=== PATIENT | female | born 1955 | race Caucasian/White ===

== ENCOUNTER → 2017-11-04 11:05 | Outpatient (CLI) | payer SELFPAY ==
--- NOTE | 2017-11-04 11:08 | MRI_ITS ---
STUDY: MRI LUMBAR SPINE WITHOUT CONTRAST REASON FOR EXAM: Female, 62 years old. rt leg pain, back pain x 20yrs TECHNIQUE: Standardized fat and water weighted pulse sequences were obtained in the sagittal and axial planes. COMPARISON: None FINDINGS: There is an exaggerated lumbar lordosis. There is a dextroscoliosis of the lumbar spine. Normal conus medullaris that terminates at the L1-2 level. There is slight retrolisthesis at L2-3 through L5-S1. There is loss of disc height at L2-3 and L3-4. There is mild chronic anterior wedging of T11. There are Modic type II changes at L3-4 there are Modic endplate changes at T9-10. There is a 1 cm benign-appearing structure in T12. There is multilevel facet arthropathy and ligamentum flavum hypertrophy. T12/L1: There is a small right paracentral protrusion impressing on the right ventral thecal sac. No neuroforaminal stenosis. L1/2: There is a minimal diffuse bulge without central canal or neuroforaminal stenosis. L2/3: There is a diffuse bulge slightly larger on the right. There is impression on the ventral thecal sac and mild right worse than left neuroforaminal stenosis. L3/4: There is a slight diffuse bulge. There is no central canal stenosis. There is [id number] bilateral neuroforaminal stenosis. L4/5: There is a diffuse bulge larger on the left. There is a tiny right foraminal annular tear. There is impression on the left ventral thecal sac and severe left and hgps-em-yntuvrzh right neuroforaminal stenosis. L5/S1: There is a mild diffuse bulge. There is no central canal stenosis. There is moderate left and mild right neuroforaminal stenosis. Normal visualized sacral ala. Normal visualized paraspinous soft tissue structures. MRI/Spine Lumbar (Routine) IMPRESSION: Multilevel degenerative changes, as described above. There is an exaggerated lumbar lordosis. There is a dextroscoliosis of the lumbar spine. L2/3: There is a diffuse bulge slightly larger on the right. There is mild right worse than left neuroforaminal stenosis. L3/4: There is a slight diffuse bulge. There is [id number] bilateral neuroforaminal stenosis. L4/5: There is a diffuse bulge larger on the left. There is a tiny right foraminal annular tear. There is severe left and eiwq-wz-gtpqvgvn right neuroforaminal stenosis. L5/S1: There is a mild diffuse bulge. There is moderate left and mild right neuroforaminal stenosis. Electronically Signed: Mary Freeman MD at 12:54 EDT , Service support ,
== END ==
PROVIDERS: Family Provider Family Medicine; PCP Family Medicine; Visit Provider Anesthesiology Pain Medicine
DX: M54.9 Dorsalgia, unspecified (principal); M79.604 Pain in right leg
CPT/HCPCS: 72148

== ENCOUNTER → 2017-11-05 10:19 | Outpatient (CLI) | payer OTHER, SELFPAY | PROVIDERS: Family Provider Family Medicine; PCP Family Medicine; Visit Provider Family Medicine | DX: R30.0 Dysuria (principal) | CPT/HCPCS: 87077; 87086; 87088; 87186 ==

== ENCOUNTER → 2018-10-09 | Outpatient (CLI) | payer OTHER, SELFPAY ==
--- NOTE | 2018-10-09 10:12 | RAD_ITS ---
STUDY: X-RAY - RIGHT FOOT CLINICAL: Female, 63 years old. Nonhealing inflamed wound on the plantar surface of the foot. Stepped on glass. TECHNIQUE: 3 view(s) of the foot. COMPARISON: None. FINDINGS: Normal talus, calcaneus, and tarsal bones. Normal visualized subtalar, talonavicular, calcaneocuboid, tarsal and tarsometatarsal articulations. Status post 8-year-old mid diaphyseal fracture of the fifth metatarsal repair with 2 screws. Status post healed fracture of the distal diaphysis of the fourth metatarsal repair with plate and screw hardware. Status post healed distal diaphyseal fracture of the third metatarsal. Degenerative changes of the first metatarsophalangeal joint with a moderate hallux valgus deformity and hypertrophic degenerative changes of the head of the first metatarsal. Lateral sesamoid migration. Normal interphalangeal joint of the great toe. Normal phalanges of the great toe. Normal second through fifth metatarsophalangeal joints. Normal interphalangeal joints and phalanges of the lesser toes. The soft tissue structures are unremarkable. RAD/Foot min 3 Views IMPRESSION: Negative for acute fracture, dislocation or foreign body. Negative for subcutaneous emphysema of the plantar soft tissues. Prior fractures of the third, fourth and fifth metatarsals healed with hardware as described above. Degenerative changes of the first metatarsophalangeal joint with hallux valgus deformity. Electronically Signed: Kiera Arguelles MD at 16:55 EDT , Service support ,
== END | disposition home or self-care (01) ==
PROVIDERS: Family Provider Family Medicine; PCP Family Medicine; Referring Provider Family Medicine; Visit Provider Family Medicine
DX: S90.851A Superficial foreign body, right foot, initial encounter (principal)
CPT/HCPCS: 73630

== ENCOUNTER → 2018-11-18 | Outpatient (CLI) | payer OTHER, SELFPAY ==
[2018-11-18 13:08] VITALS: BMI 21.4
--- NOTE | 2018-11-18 13:14 | RAD_ITS ---
STUDY: X-RAY - PELVIS AND RIGHT HIP REASON FOR EXAM: Increasing right hip pain. TECHNIQUE: 2 views of the pelvis and hip. COMPARISON: None. FINDINGS: Normal visualized soft tissue structures. Normal bilateral iliac wings, sacroiliac joints and visualized sacrum. There is a small bone island in the right iliac wing. Normal bilateral superior and inferior pubic rami. Normal pubic symphysis. Normal bilateral ischial tuberosities. There are small marginal osteophytes of the right femoral head, subchondral cystic change of the right acetabulum and moderate joint space narrowing of the right hip. RAD/HIP, UNI W/ Pelvis 2-3 Views IMPRESSION: Right hip arthrosis. Electronically Signed: Yan Barroso MD at 16:04 EDT Tel , Service support ,
== END | disposition home or self-care (01) ==
LOC: HPRAD 13:14
PROVIDERS: Family Provider Family Medicine; PCP Family Medicine; Referring Provider Orthopaedic Surgery; Visit Provider Orthopaedic Surgery
DX: M25.551 Pain in right hip (principal)
CPT/HCPCS: 73502

== ENCOUNTER → 2018-12-29 09:38 | Outpatient (CLI) | payer OTHER, SELFPAY ==
[2018-12-29 09:31] VITALS: BMI 21.4
--- NOTE | 2018-12-29 09:39 | RAD_ITS ---
STUDY: X-RAY - LUMBAR SPINE REASON FOR EXAM: Female, 63 years old. Back pain TECHNIQUE: 4 view(s) of the lumbar spine were obtained. COMPARISON: None FINDINGS: There is an exaggerated lumbar lordosis is no focal L1. Body fracture. No pars defect. Moderate degenerative change of the intervertebral disc spaces at L2-3 and L3-L4 with similar change, to a lesser degree, seen at L4-L5. Degenerative change of the facet joints at L4-L5 and L5-S1. The soft tissue structures are unremarkable. RAD/L/S Spine Min 4 Views IMPRESSION: 1. No acute abnormality of the lumbar spine. 2. Moderate multilevel degenerative disc and facet disease Electronically Signed: Abimael Francois MD at 3:12 EDT Tel , Service support ,
== END ==
PROVIDERS: Family Provider Family Medicine; PCP Family Medicine; Referring Provider Orthopaedic Surgery; Visit Provider Orthopaedic Surgery
DX: M54.5 Low back pain (principal)
CPT/HCPCS: 72110

== ENCOUNTER → 2019-01-05 13:33 | Outpatient (CLI) | payer OTHER, SELFPAY ==
[2018-12-29 09:31] VITALS: BMI 21.4
[2019-01-05 15:20] LABS: Amphetamine Urine VISTA NEGATIVE (<1000 ng/mL); Barbiturate Urine VISTA NEGATIVE (< 200 ng/mL); Benzodiazepine Urine VISTA NEGATIVE (< 200 ng/mL); Cocaine Urine VISTA NEGATIVE (< 300 ng/mL); Ecstacy Urine VISTA NEGATIVE (< 500 ng/mL); Methadone Urine VISTA NEGATIVE (< 300 ng/mL); PCP Urine VISTA NEGATIVE (< 25 ng/mL); THC Urine VISTA NEGATIVE (< 50 ng/mL); Vista UDS pH Range 6
== END ==
PROVIDERS: Family Provider Family Medicine; PCP Family Medicine; Referring Provider Anesthesiology Pain Medicine; Visit Provider Anesthesiology Pain Medicine
DX: F11.20 Opioid dependence, uncomplicated (principal)
CPT/HCPCS: 80307

== ENCOUNTER → 2019-02-17 11:13 | Outpatient (CLI) | payer OTHER, SELFPAY ==
[2019-02-17 10:46] VITALS: BMI 21.4
[2019-02-17 12:10] LABS: Absolute Lymphocyte Count 1.42 X10^3/uL (0.83-4.51); Absolute Neutrophil Count 3.5 X10^3/uL (2.0-7.7); Basophil# 0.04 X10^3/uL; Basophil% 0.7 % (0-1); Eosinophil# 0.11 X10^3/uL; Hemoglobin 12.8 g/dL (12.0-15.0); Lymphocyte # 1.42 X10^3/ul (4.0); Lymphocyte % 26.4 % (19-41); Mean Corp Hgb Conc 32.8 g/dL (32-36); Mean Corpuscular Hgb 30.4 pg (27.0-32.0); Mean Corpuscular Volume 92.6 fL (81-99); Monocyte# 0.35 X10^3/uL; Monocyte% 6.5 % (0-10); NRBC Flagged by Analyzer 0 % (0-5); Neutrophil # 3.45 X10^3/uL (2.7-7.7); Neutrophil % 64.2 % (47-70); Platelet Count 268 K/mm3 (150-450); RBC Distribution Width CV 11.8 % (11.6-14.6); RBC Distribution Width SD 39.8 fl (35.1-43.9); Red Blood Count 4.21 M/mm3 (4.2-5.4); White Blood Count 5.4 K/mm3 (4.4-11.0)
[2019-02-17 12:47] LABS: ALB/GLOB Ratio 1.2 RATIO (0.9-2.4); AST(SGOT) 20 U/L (15-37); Alanine Aminotransfer ALT/SGPT 26 U/L (13-56); Albumin, Serum 3.8 g/dL (3.2-5.0); Alkaline Phosphatase 61 U/L (45-117); Anion Gap 7 (5-15); BUN 12 mg/dL (7-18); BUN/Creat Ratio 14.3 RATIO (10-20); Calcium,Total 8.7 mg/dL (8.5-10.1); Chloride 97 mmol/L (98-107); Creatinine, Serum 0.84 mg/dL (0.55-1.02); EST Glomerular Filtration Rate 73 mL/min (>60); Est Glom Filt Rate - Afr Amer 89 mL/min (>60); Globulin 3.2 g/dL (2.2-4.2); Glucose 94 mg/dL (74-106); Potassium 4.3 mmol/L (3.5-5.1); Sodium Level 134 mmol/L (136-145); T4 Free Direct 1.23 ng/dL (0.76-1.46); Thyroid Stim Hormone (TSH) 1.38 uIU/mL (0.358-3.74)
== END ==
PROVIDERS: Family Provider Family Medicine; PCP Internal Medicine; Visit Provider Internal Medicine
DX: F32.9 Major depressive disorder, single episode, unspecified (principal); D50.9 Iron deficiency anemia, unspecified
CPT/HCPCS: 36415; 80053; 84439; 84443; 85025

== ENCOUNTER → 2019-05-11 12:47 | Outpatient (CLI) | payer OTHER, SELFPAY ==
[2019-05-10 11:27] VITALS: BMI 21.4
--- NOTE | 2019-05-11 12:48 | RAD_ITS ---
STUDY: X-RAY - PELVIS AND RIGHT HIP REASON FOR EXAM: Right hip pain. TECHNIQUE: 2 views of the pelvis and hip. COMPARISON: Radiographs 11/18/2018. FINDINGS: Normal visualized soft tissue structures. Normal bilateral iliac wings, sacroiliac joints and visualized sacrum. Normal bilateral superior and inferior pubic rami. Normal pubic symphysis. Normal bilateral ischial tuberosities. Normal visualized femoral head. There are small marginal osteophytes of the femoral head, subchondral cystic change of the acetabulum and severe joint space narrowing of the right hip joint, increased since the prior study. RAD/HIP, UNI W/ Pelvis 2-3 Views IMPRESSION: Increased arthrosis of the right hip. Electronically Signed: Yan Barroso MD at 14:50 EST Tel , Service support ,
== END ==
PROVIDERS: PCP Internal Medicine; Referring Provider Internal Medicine; Visit Provider Internal Medicine
DX: M25.551 Pain in right hip (principal)
CPT/HCPCS: 73502

== ENCOUNTER → 2019-06-09 17:47 | Outpatient (CLI) | payer OTHER, SELFPAY ==
[2019-06-04 10:22] VITALS: BMI 21.4
[2019-06-08 12:59] VITALS: BMI 21.4
--- NOTE | 2019-06-09 17:47 | CT_ITS ---
STUDY: RIGHT HIP CT SCAN REASON FOR EXAM: Female, 64 years old. PRE-OP [facility] HIP RADIATION DOSAGE (If Supplied By Facility): CTDIvol = ( 12.06 ) mGy, DLP = ( 599.85 ) mGycm. Individualized dose optimization techniques were used for this CT.? TECHNIQUE: Axial multidetector CT scan of the right hip. Coronal and sagittal reformatted images. COMPARISON: X-ray dated May 11, 2019. FINDINGS: Severe right hip osteoarthritis with large subchondral cyst formation at the right acetabulum. Severe joint space narrowing of the right hip. Mild osteophyte production at the right hip. Mild pubic symphysis arthrosis. Mild left hip arthrosis. Minimal sacroiliac joint arthrosis. L4-5, L5-S1 neural foramina narrowing. L4-5 and L5-S1 vacuum phenomenon. L4-5 moderate endplate spondylosis. No acute fracture. No acute dislocation. No acute bone destruction. Osteopenia. Slightly hyperdense ovoid pelvic density likely at the region of the uterus (sagittal image 78 series 602) measuring 3 cm. Constipation. Normal urinary bladder. Normal appendix. Mild paraspinal muscle atrophy. No acute soft tissue process. Moderate right and mild left knee osteoarthritis with patellofemoral joint space narrowing. CT/Extremity Lower without Contra IMPRESSION: Severe right hip osteoarthritis Nonspecific hyperdense pelvic ovoid lesion (possible fibroid; correlate nonemergent pelvic ultrasound) Additional findings, as above Electronically Signed: Tristen Laird DO at 8:44 EST Tel , Service support ,
== END ==
PROVIDERS: PCP Internal Medicine; Referring Provider Orthopaedic Surgery; Visit Provider Orthopaedic Surgery
DX: Z01.818 Encounter for other preprocedural examination (principal); M16.11 Unilateral primary osteoarthritis, right hip
CPT/HCPCS: 73700

== ENCOUNTER → 2019-06-10 09:00 | Outpatient (CLI) | payer OTHER, SELFPAY ==
[2019-06-04 10:22] VITALS: BMI 21.4
--- NOTE | 2019-06-04 10:30 | HP_ITS ---
Intake Intake Visit Reasons: right hip Chief Complaint: right hip pain Accompanied by: Self Is patient in pain?: Yes Pain scale (1-10): 6 Allergies Penicillins [PCN] Allergy (Severe, Verified 06/04/19 10:38) anaphalaxis ragweed pollen Adverse Reaction (Verified 12/29/18 09:53) Other Medications ascorbate calcium (vitamin C) 500 mg tablet 500 mg PO DAILY 02/12/19 [History Confirmed 06/04/19] magnesium 250 mg tablet 250 mg PO DAILY 02/12/19 [History Confirmed 06/04/19] turmeric 400 mg capsule mg PO cap 02/12/19 [History Confirmed 06/04/19] gabapentin 600 mg tablet 1,200 mg PO TID 30 Days #180 tab 04/16/19 [Rx Confirmed 06/04/19] blood pressure monitor See Rx Instructions .ROUTE .MEDSUPPLY #1 ea 05/10/19 [Rx Confirmed 06/04/19] tranylcypromine 10 mg tablet 10 mg PO TID tab 05/10/19 [History Confirmed 06/04/19] Is last menstrual period known: No Post menopausal: Yes Patient : No PFSH Medical History (Updated 02/17/19 @ 12:[address] Balbina Zelaya MD) Alcohol abuse (Acute) Arthritis (Acute) H/O emotional problems (Acute) IBS (irritable bowel syndrome) (Acute) Iron deficiency (Acute) Seasonal allergies (Acute) Chronic back pain (Chronic) Surgical History (Updated 02/12/19 @ 08:42 by Zuleima Suazo) History of (Acute) History of tonsillectomy (Acute) Social History (Updated 06/04/19 @ 11:[address] Harvey Odom DO) Smoking Status: Former smoker alcohol intake: never substance use type: does not use frequency: daily HPI right hip: Surgical H&P: Yes Details: Parts of this documentation were recorded by a scribe, this documentation accurately reflects the service provided and the decisions made by Harvey aguilar DO 06/04/19 0752. ELIE GUTIERREZ is a 63 year old F here today for right hip pain, she has been doing stretching and yoga with a change to an arthritis diet and does note relief. She has groin pain that does radiate into the posterior hip and down the thigh. She has had many injections in her lumbar spine and tailbone and one in the hip joint that gave relief for about a month. She has seen Dr Navarrete who did refer her back to pain management. She does use tylenol as needed. 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 She does experience numbness and tingling into the back of leg ending at the mid calf. Patient was reffered to Dr. Almaraz for IA hip injection but she does not wish to have the injection, she wishes to sign surgery consent today. ROS Const Reports system reviewed and no additional complaints, except as docu Eyes Reports system reviewed and no additional complaints, except as docu ENT Reports system reviewed and no additional complaints, except as docu Card Reports system reviewed and no additional complaints, except as docu Resp Reports system reviewed and no additional complaints, except as docu GI Reports system reviewed and no additional complaints, except as docu Reports system reviewed and no additional complaints, except as docu Musc Reports back pain, Reports radiating pain into limb Skin/Breast Reports system reviewed and no additional complaints, except as docu Neuro Yes system reviewed and no additional complaints, except as docu Psych Reports system reviewed and no additional complaints, except as docu Endo Reports system reviewed and no additional complaints, except as docu Ortho Exam Right Hip Skin: No Ecchymosis, No soft tissue swelling, No Erythema internal rotation @90 degree flexion: 15 degrees external rotation @90 degree extension: 95 (med pain) degrees Special Tests: No TTP Greater Troch, No RROM flexion pain, Yes FADIR Homans Sign: No Supplemental Info 05/11/2019 x-ray right hip moderate joint space narrowing subchondral cysts and spurring 11/04/2017 MRI lumbar spine: Multilevel moderate foraminal stenosis bilaterally severe foraminal stenosis bilaterally L4-L5 ,severe degenerative disc disease L2-3 L3-4 with canal stenosis L4-5 11/18/2018 x-ray right hip mild-moderate joint space narrowing superiorly with subchondral cyst of the acetabulum and femoral head Assessment & Plan Problems 1. Primary localized osteoarthritis of right hip M16.11 Plan Patient has thought about her options and she wishes to proceed with a right total hip replacement. Reviewed the pre-operative plans with the patient. Educated that she will be on a blood thinner for 3 weeks post op. Risks and benefits of the procedure were fully explained, including but not limited to infection, neurovascular injury, continued pain, arthritis, stiffness, need for further surgery, re-injury, DVT, PE, general risks of anesthesia, and loss of limb or life. The patient understands all the risks and does wish to proceed with written consent. Patient educated that there is a chance for a leg length discrepancy but this is very minimal d/t the Buddy robot. Patient wishes to have surgery 06/29/2019. Educated that she will need a CT scan of her hip for the robotic arm assist. Follow up 2 weeks post op or sooner if pain, swelling, numbness or associated symptoms, or concerns develop. All questions answered. Patient in agreement of plan. Patient requests you CC Dr. Monet in this office note. Orders Orders: Extremity Lower without Contra Today M16.11, Z01.818 Coding Level of Care Code Off vis,est,level 3 Diagnoses Primary localized osteoarthritis of right hip M16.11 06/04/19 1146 <Electronically signed by Harvey de la cruz DO> Date _ Harvey Odom DO
[2019-06-10 09:25] VITALS: BP 142/86; PULSE 90; RESP 16; TEMP 37; O2SAT 100; BMI 21.9
--- NOTE | 2019-06-10 09:49 | SDCEKG_ITS ---
Test Reason : Blood Pressure : / mmHG Vent. Rate : 076 BPM Atrial Rate : 076 BPM P-R Int : 146 ms QRS Dur : 076 ms QT Int : 358 ms P-R-T Axes : 032 003 045 degrees QTc Int : 402 ms Normal sinus rhythm Nonspecific ST abnormality Abnormal ECG Confirmed by TEMO DOTSON ([id number]), market editor HENRRY EDUARDO ([id number]) on 06/17/2019 7:22:49 AM Referred By: Harvey Odom Confirmed By:TEMO DOTSON
== END ==
PROVIDERS: PCP Internal Medicine; Referring Provider Orthopaedic Surgery; Visit Provider Orthopaedic Surgery
DX: Z01.810 Encounter for preprocedural cardiovascular examination (principal)
CPT/HCPCS: 87081; 93005

== ENCOUNTER → 2019-06-16 13:42 | Outpatient (CLI) | payer OTHER, SELFPAY ==
[2019-06-16 13:07] VITALS: BMI 21.9
[2019-06-16 15:22] LABS: Absolute Neutrophil Count 1.5 X10^3/uL (2.0-7.7); Basophil# 0.03 X10^3/uL; Basophil% 0.8 % (0-1); Eosinophil# 0.09 X10^3/uL; Eosinophils% 2.5 % (0-5); Hematocrit 37.9 % (37-47); Lymphocyte % 45.3 % (19-41); Mean Corp Hgb Conc 31.7 g/dL (32-36); Mean Corpuscular Hgb 29.9 pg (27.0-32.0); Mean Corpuscular Volume 94.5 fL (81-99); Monocyte# 0.33 X10^3/uL; Monocyte% 9.3 % (0-10); NRBC Flagged by Analyzer 0 % (0-5); Neutrophil # 1.47 X10^3/uL (2.7-7.7); Neutrophil % 41.8 % (47-70); Platelet Count 293 K/mm3 (150-450); RBC Distribution Width CV 11.8 % (11.6-14.6); Red Blood Count 4.01 M/mm3 (4.2-5.4); White Blood Count 3.5 K/mm3 (4.4-11.0)
[2019-06-16 15:42] LABS: ALB/GLOB Ratio 1.1 RATIO (0.9-2.4); AST(SGOT) 17 U/L (15-37); Alanine Aminotransfer ALT/SGPT 22 U/L (13-56); Albumin, Serum 3.7 g/dL (3.2-5.0); Alkaline Phosphatase 66 U/L (45-117); Anion Gap -1 (5-15); BUN 8 mg/dL (7-18); BUN/Creat Ratio 10.4 RATIO (10-20); Calcium,Total 8.5 mg/dL (8.5-10.1); Chloride 109 mmol/L (98-107); Creatinine, Serum 0.77 mg/dL (0.55-1.02); EST Glomerular Filtration Rate 81 mL/min (>60); Est Glom Filt Rate - Afr Amer 97 mL/min (>60); Globulin 3.3 g/dL (2.2-4.2); Glucose 55 mg/dL (74-106); Potassium 3.9 mmol/L (3.5-5.1); Sodium Level 143 mmol/L (136-145); Thyroid Stim Hormone (TSH) 0.34 uIU/mL (0.358-3.74)
[2019-06-16 16:26] LABS: T4 Free Direct 0.98 ng/dL (0.76-1.46)
== END ==
PROVIDERS: Anesthesiology; PCP Internal Medicine; Referring Provider Nurse Practitioner Family; Visit Provider Nurse Practitioner Family
DX: Z01.818 Encounter for other preprocedural examination (principal); R79.89 Other specified abnormal findings of blood chemistry
CPT/HCPCS: 36415; 80053; 83735; 84439; 84443; 85025

== ENCOUNTER → 2019-09-22 | Outpatient (CLI) | payer OTHER, SELFPAY ==
[2019-09-22 11:07] VITALS: BMI 21.9
[2019-09-28 16:38] LABS: HPV APTIMA, High Risk Negative (Negative)
== END | disposition home or self-care (01) ==
LOC: LABSPEC 12:28
PROVIDERS: PCP Internal Medicine; Referring Provider Nurse Practitioner Women's Health; Visit Provider Nurse Practitioner Women's Health
DX: Z12.4 Encounter for screening for malignant neoplasm of cervix (principal)
CPT/HCPCS: 87624; 88175; G0145

== ENCOUNTER 2019-10-19 06:53 | Day surgery (SDC) | payer OTHER, SELFPAY ==
[2019-10-06 07:54] VITALS: BMI 21.9
--- NOTE | 2019-10-06 11:51 | HP_ITS ---
Intake Intake Visit Reasons: right hip Is patient in pain?: Yes Allergies Penicillins [PCN] Allergy (Severe, Verified 10/06/19 11:29) anaphalaxis ragweed pollen Adverse Reaction (Verified 10/06/19 11:29) Other Medications ascorbate calcium (vitamin C) 500 mg tablet 500 mg PO DAILY 02/12/19 [History Confirmed 10/06/19] magnesium 250 mg tablet 250 mg PO DAILY 02/12/19 [History Confirmed 10/06/19] turmeric 400 mg capsule 400 mg PO DAILY cap 02/12/19 [History Confirmed 10/06/19] blood pressure monitor See Rx Instructions .ROUTE .MEDSUPPLY #1 ea 05/10/19 [Rx Confirmed 10/06/19] tranylcypromine 10 mg tablet 10 mg PO TID tab 05/10/19 [History Confirmed 10/06/19] Avocado Oil 1 ml MC DAILY 06/10/19 [History Confirmed 10/06/19] Boswellia Roma Extract 1 gm PO DAILY 06/10/19 [History Confirmed 10/06/19] Cholecalciferol (Vitamin D3) [Vitamin D3] 5,000 unit PO DAILY 06/10/19 [History Confirmed 10/06/19] Glucosamine/Chondr Hussein A Sod [Glucosamine-Chondroitin Liq] 480 ml PO DAILY 06/10/19 [History Confirmed 10/06/19] Multivitamin [Daily Multiple Vitamin] 1 ea PO DAILY 06/10/19 [History Confirmed 10/06/19] [place]-3 Fatty Acids [[place]-3] 1,000 mg PO DAILY 06/10/19 [History Confirmed 10/06/19] Parsley/Garlic [Garlic & Parsley Tablet] 1 ea PO DAILY 06/10/19 [History Confirmed 10/06/19] hydrochlorothiazide 12.5 mg tablet 12.5 mg PO QAM #90 tab 06/17/19 [Rx Confirmed 10/06/19] celecoxib 200 mg capsule 200 mg PO DAILY PRN #30 cap 07/28/19 [Rx Confirmed 10/06/19] gabapentin 600 mg tablet 1,200 mg PO TID 30 Days #180 tab 07/28/19 [Rx Confirmed 10/06/19] estradiol See Rx Instructions VAGINAL .COMPLEX #42.5 g 09/22/19 [Rx Confirmed 10/06/19] PFSH Social History (Updated 10/06/19 @ 13:[address] Harvey Odom, ) number of children: 1 current occupational status: retired Smoking Status: Former smoker alcohol intake: never substance use type: does not use frequency: daily seatbelt use: always do you feel safe at home: Yes HPI right hip: Surgical H&P: Yes Details: Parts of this documentation were recorded by a scribe, this documentation accurately reflects the service provided and the decisions made by me, Dr. Harvey Odom DO 10/06/19 0754. ELIE GUTIERREZ is a 64 year old F here today for continued right hip pain. Patient complains of pain into her groin and her pain is worsening. She has increased pain with all activities. She denies any decreased range of motion but limits her activities. She notes that she had injections into her right hip which was not helpful usp. She was scheduled for a total hip arthroplasty but was canceled due to the pandemic. Patient had a CT scan on 06/09/19. She denies any changes in her medical history since her last clearance. ROS Musc Reports joint pain, Reports muscle weakness, Denies numbness, Reports stiffness, Denies tingling Skin/Breast Reports system reviewed and no additional complaints, except as docu Neuro Yes system reviewed and no additional complaints, except as docu, No numbness, No tingling Ortho Exam Right Hip Skin: Yes CDI, No Ecchymosis, No Erythema internal rotation @90 degree flexion: 3 degrees external rotation @90 degree extension: 90 degrees HIP: good ankle range of motion Right Hip Skin: No Ecchymosis, No soft tissue swelling, No Erythema Special Tests: No TTP Greater Troch, No RROM flexion pain, Yes FADIR Homans Sign: No Supplemental Info 05/11/2019 x-ray right hip moderate joint space narrowing subchondral cysts and spurring 11/04/2017 MRI lumbar spine: Multilevel moderate foraminal stenosis bilaterally severe foraminal stenosis bilaterally L4-L5 ,severe degenerative disc disease L2-3 L3-4 with canal stenosis L4-5 11/18/2018 x-ray right hip mild-moderate joint space narrowing superiorly with subchondral cyst of the acetabulum and femoral head Assessment & Plan Problems 1. Primary localized osteoarthritis of right hip M16.11 Plan Spoke with the patient about covid precautions. Explained the surgery procedure and recovery. Reviewed the pre-operative plans with the patient. Risks and benefits of the procedure were fully explained, including but not limited to infection, neurovascular injury, continued pain, arthritis, stiffness, need for further surgery, re-injury, DVT, PE, general risks of anesthesia, and loss of limb or life. The patient understands all the risks and does wish to proceed with written consent. She should limit her ibuprofen intake for 7 days prior to surgery. She should stop celebrex and tumeric 7 days prior to surgery. She may take tylenol for pain. Follow up for 2 week post op appt or sooner if pain, swelling, numbness or associated symptoms, or concerns develop. All questions answered. Patient in agreement of plan. Coding Level of Care Code Off vis,est,level 3 Diagnoses Primary localized osteoarthritis of right hip M16.11 COVID (Procedure Consent) Procedure Criteria Procedure Criteria: Yes Elective The surgeon/proceduralist and patient have discussed in detail the risk of exposure to and/or potential harm posed by the COVID-19 virus with having a surgery/procedure at this time versus the risk of? delaying the surgery/procedure. It is not possible to know either the risk of delaying the surgery or procedure or chance of getting an infection with perfect accuracy, but a joint decision was made between the patient and the surgeon/proceduralist ?to proceed at this time with the scheduled surgery/procedure as indicated on the consent form. 10/06/19 1308 <Electronically signed by Harvey de la cruz DO> Date _ Harvey Odom DO
[2019-10-14 11:08] LABS: Absolute Lymphocyte Count 2.19 X10^3/uL (0.83-4.51); Absolute Neutrophil Count 1.8 X10^3/uL (2.0-7.7); Basophil# 0.05 X10^3/uL; Basophil% 1.1 % (0-1); Eosinophil# 0.28 X10^3/uL; Eosinophils% 6.1 % (0-5); Hematocrit 37.6 % (37-47); Hemoglobin 12.3 g/dL (12.0-15.0); Lymphocyte # 2.19 X10^3/ul (4.0); Lymphocyte % 47.4 % (19-41); Mean Corp Hgb Conc 32.7 g/dL (32-36); Mean Corpuscular Hgb 30.7 pg (27.0-32.0); Mean Corpuscular Volume 93.8 fL (81-99); Mean Platelet Vol. 10.7 fl (6.2-12.0); Monocyte% 6.5 % (0-10); NRBC Flagged by Analyzer 0 % (0-5); Neutrophil # 1.79 X10^3/uL (2.7-7.7); Neutrophil % 38.7 % (47-70); Platelet Count 271 K/mm3 (150-450); RBC Distribution Width CV 12.2 % (11.6-14.6); RBC Distribution Width SD 42.4 fl (35.1-43.9); Red Blood Count 4.01 M/mm3 (4.2-5.4); White Blood Count 4.6 K/mm3 (4.4-11.0)
[2019-10-14 11:21] LABS: Partial Thromboplast Time 28.8 Seconds (24.1-36.2); Prothrombin Time (Protime)PT. 13.1 SECONDS (11.7-14.9)
[2019-10-14 12:48] LABS: Anion Gap 7 (5-15); BUN 9 mg/dL (7-18); BUN/Creat Ratio 10.6 RATIO (10-20); Calcium,Total 8.8 mg/dL (8.5-10.1); Chloride 99 mmol/L (98-107); Creatinine, Serum 0.85 mg/dL (0.55-1.02); EST Glomerular Filtration Rate 72 mL/min (>60); Est Glom Filt Rate - Afr Amer 87 mL/min (>60); Glucose 134 mg/dL (74-106); Potassium 3.5 mmol/L (3.5-5.1); Sodium Level 135 mmol/L (136-145)
[2019-10-19] VITALS (13 sets, daily range): BP systolic 76–121; BP diastolic 50–77; PULSE 58–76; RESP 14–18; TEMP 36.1–36.6; O2SAT 94–100; BMI 21.4
[2019-10-19 07:30] LABS: Magnesium 2.1 mg/dL (1.6-2.6)
--- NOTE | 2019-10-19 07:32 | PCM.HP.BLA ---
History and Physical Date of Admission: 10/19/19 Intake Intake Visit Reasons: right hip Is patient in pain?: Yes Allergies Penicillins [PCN] Allergy (Severe, Verified 10/06/19 11:29) anaphalaxis ragweed pollen Adverse Reaction (Verified 10/06/19 11:29) Other Medications ascorbate calcium (vitamin C) 500 mg tablet 500 mg PO DAILY 02/12/19 [History Confirmed 10/06/19] magnesium 250 mg tablet 250 mg PO DAILY 02/12/19 [History Confirmed 10/06/19] turmeric 400 mg capsule 400 mg PO DAILY cap 02/12/19 [History Confirmed 10/06/19] blood pressure monitor See Rx Instructions .ROUTE .MEDSUPPLY #1 ea 05/10/19 [Rx Confirmed 10/06/19] tranylcypromine 10 mg tablet 10 mg PO TID tab 05/10/19 [History Confirmed 10/06/19] Avocado Oil 1 ml MC DAILY 06/10/19 [History Confirmed 10/06/19] Boswellia Roma Extract 1 gm PO DAILY 06/10/19 [History Confirmed 10/06/19] Cholecalciferol (Vitamin D3) [Vitamin D3] 5,000 unit PO DAILY 06/10/19 [History Confirmed 10/06/19] Glucosamine/Chondr Hussein A Sod [Glucosamine-Chondroitin Liq] 480 ml PO DAILY 06/10/19 [History Confirmed 10/06/19] Multivitamin [Daily Multiple Vitamin] 1 ea PO DAILY 06/10/19 [History Confirmed 10/06/19] Fowler-3 Fatty Acids [Fowler-3] 1,000 mg PO DAILY 06/10/19 [History Confirmed 10/06/19] Parsley/Garlic [Garlic & Parsley Tablet] 1 ea PO DAILY 06/10/19 [History Confirmed 10/06/19] hydrochlorothiazide 12.5 mg tablet 12.5 mg PO QAM #90 tab 06/17/19 [Rx Confirmed 10/06/19] celecoxib 200 mg capsule 200 mg PO DAILY PRN #30 cap 07/28/19 [Rx Confirmed 10/06/19] gabapentin 600 mg tablet 1,200 mg PO TID 30 Days #180 tab 07/28/19 [Rx Confirmed 10/06/19] estradiol See Rx Instructions VAGINAL .COMPLEX #42.5 g 09/22/19 [Rx Confirmed 10/06/19] [facility] Social History (Updated 10/06/19 @ 13:[address] Harvey Odom DO) number of children: 1 current occupational status: retired Smoking Status: Former smoker alcohol intake: never substance use type: does not use frequency: daily seatbelt use: always do you feel safe at home: Yes HPI right hip: Surgical H&P: Yes Details: Parts of this documentation were recorded by a scribe, this documentation accurately reflects the service provided and the decisions made by me, Dr. Harvey Odom DO 10/06/19 0754. ELIE GUTIERREZ is a 64 year old F here today for continued right hip pain. Patient complains of pain into her groin and her pain is worsening. She has increased pain with all activities. She denies any decreased range of motion but limits her activities. 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 She was scheduled for a total hip arthroplasty but was canceled due to the pandemic. Patient had a CT scan on 06/09/19. She denies any changes in her medical history since her last clearance. ROS Musc Reports joint pain, Reports muscle weakness, Denies numbness, Reports stiffness, Denies tingling Skin/Breast Reports system reviewed and no additional complaints, except as docu Neuro Yes system reviewed and no additional complaints, except as docu, No numbness, No tingling Ortho Exam Right Hip Skin: Yes CDI, No Ecchymosis, No Erythema internal rotation @90 degree flexion: 3 degrees external rotation @90 degree extension: 90 degrees HIP: good ankle range of motion Right Hip Skin: No Ecchymosis, No soft tissue swelling, No Erythema Special Tests: No TTP Greater Troch, No RROM flexion pain, Yes FADIR Homans Sign: No Supplemental Info 05/11/2019 x-ray right hip moderate joint space narrowing subchondral cysts and spurring 11/04/2017 MRI lumbar spine: Multilevel moderate foraminal stenosis bilaterally severe foraminal stenosis bilaterally L4-L5 ,severe degenerative disc disease L2-3 L3-4 with canal stenosis L4-5 11/18/2018 x-ray right hip mild-moderate joint space narrowing superiorly with subchondral cyst of the acetabulum and femoral head Assessment & Plan Problems 1. Primary localized osteoarthritis of right hip M16.11 Plan Spoke with the patient about covid precautions. Explained the surgery procedure and recovery. Reviewed the pre-operative plans with the patient. Risks and benefits of the procedure were fully explained, including but not limited to infection, neurovascular injury, continued pain, arthritis, stiffness, need for further surgery, re-injury, DVT, PE, general risks of anesthesia, and loss of limb or life. The patient understands all the risks and does wish to proceed with written consent. She should limit her ibuprofen intake for 7 days prior to surgery. She should stop celebrex and tumeric 7 days prior to surgery. She may take tylenol for pain. Follow up for 2 week post op appt or sooner if pain, swelling, numbness or associated symptoms, or concerns develop. All questions answered. Patient in agreement of plan. Coding Level of Care Code Off vis,est,level 3 Diagnoses Primary localized osteoarthritis of right hip M16.11 COVID (Procedure Consent) Procedure Criteria Procedure Criteria: Yes Elective The surgeon/proceduralist and patient have discussed in detail the risk of exposure to and/or potential harm posed by the COVID-19 virus with having a surgery/procedure at this time versus the risk of? delaying the surgery/procedure. It is not possible to know either the risk of delaying the surgery or procedure or chance of getting an infection with perfect accuracy, but a joint decision was made between the patient and the surgeon/proceduralist ?to proceed at this time with the scheduled surgery/procedure as indicated on the consent form. I have re-examined the patient. There are no clinical changes since date of exam Procedure Criteria Procedure Type: Elective COVID Risk Discussion: The surgeon/proceduralist and patient have discussed in detail the risk of exposure to and/or potential harm posed by the COVID-19 virus with having a surgery/procedure at this time versus the risk of delaying the surgery/procedure. It is not possible to know either the risk of delaying the surgery or procedure or chance of getting an infection with perfect accuracy, but a joint decision was made between the patient and the surgeon/proceduralist to proceed at this time with the scheduled surgery/procedure as indicated on the consent form.
[2019-10-19 07:50] LABS: Bedside Glucose 88 mg/dL (70-110)
[2019-10-19] MEDS: Acetaminophen 500 MG Tablet 1000 MG PO (08:04)
[2019-10-19] MEDS: Scopolamine 1mg/72hr Patch 1 PATCH TRANSDERM. (08:04)
[2019-10-19] MEDS: Celecoxib 200 MG Capsule 400 MG PO (08:05)
[2019-10-19] MEDS: Gabapentin 600 MG Tablet PO (08:05)
[2019-10-19] MEDS: Lactated Ringers 1,000 ML 100 ML IV (08:10)
[2019-10-19] MEDS: Vancomycin IV 1,000 MG/200 ML BAG 200 MG IV (11:09)
[2019-10-19] MEDS: dexAMETHasone 10 MG/ML Vial IV (11:10)
--- NOTE | 2019-10-19 13:02 | RAD_ITS ---
STUDY: X-RAY - PELVIS AND RIGHT HIP REASON FOR EXAM: Female, 64 years old. POST OP TECHNIQUE: 2 views of the pelvis and hip. COMPARISON: Comparison is made with prior examination dated May 11, 2019. FINDINGS: The patient is status post right total hip replacement. There is good alignment. Postoperative soft tissue changes. RAD/Hip Min 2 Views (Portable) IMPRESSION: Status post right total hip replacement. There is good alignment. Postoperative soft tissue changes. Electronically Signed: Arvind Mcnair, at 14:04 EDT , Service support ,
--- NOTE | 2019-10-19 13:11 | PCM.DC.ORTHO ---
Discharge Diet: No Restrictions Weight Bearing Status: Weight bearing as tolerated Call your doctor if you observe: Shortness of breath, Chest pain Additional Instructions: Begin daily showering warm water antibacterial soap postop day #3( 72hrs Post-operatively) and then daily. Leave the dressing on for 72 hours postoperatively then may remove prior to first shower and change dressing daily after this until no drainage for 2 consecutive days then may leave open to air. Follow strict hip precautions that were reviewed in hospital. Wear compression stockings, may remove at night. Start physical therapy as directed in hospital. Call Dr. Odom's office with any concerns. Allergies/Adverse Reactions: Allergies Penicillins [PCN] Allergy (Severe, Verified 10/19/19 07:50) anaphalaxis ragweed pollen Adverse Reaction (Verified 10/19/19 07:50) Other Medications to take at Discharge ascorbate calcium (vitamin C) 500 mg tablet 500 mg PO DAILY 02/12/19 Avocado Oil 1 ml MC DAILY 06/10/19 Cholecalciferol (Vitamin D3) [Vitamin D3] 5,000 unit PO DAILY 06/10/19 Glucosamine/Chondr Hussein A Sod [Glucosamine-Chondroitin Liq] 480 ml PO DAILY 06/10/19 Multivitamin [Daily Multiple Vitamin] 1 ea PO DAILY 06/10/19 hydrochlorothiazide 12.5 mg tablet 12.5 mg PO QAM #90 tab 06/17/19 gabapentin 600 mg tablet 1,200 mg PO TID 30 Days #180 tab 07/28/19 estradiol See Rx Instructions VAGINAL .COMPLEX #42.5 g 09/22/19 tranylcypromine 10 mg tablet 10 mg PO Q6H 30 Days #120 tab 10/12/19 Acetaminophen [Tylenol Extra Strength] 1,000 mg PO Q6H PRN #100 tab 10/19/19 Apixaban [Eliquis] 2.5 mg PO BID #30 tab 10/19/19 Clindamycin HCl 300 mg PO Q8 #4 cap 10/19/19 Oxycodone [Oxyir] 5 - 10 mg PO Q4H PRN PRN #60 tablet 10/19/19 The following prescriptions were given: Clindamycin HCl 300 mg PO Q8 #4 cap Transmission Status: Pending to [facility] Apixaban [Eliquis] 2.5 mg PO BID #30 tab Transmission Status: Pending to [facility] Oxycodone [Oxyir] 5 - 10 mg PO Q4H PRN PRN #60 tablet PRN Reason: Pain Score 4-10/10 Transmission Status: Sent to [facility] Acetaminophen [Tylenol Extra Strength] 1,000 mg PO Q6H PRN #100 tab Transmission Status: Pending to [facility] Primary Care Physician: Balbina Zelaya MD [Primary Care Provider] - Test Results: Test results from this visit will be discussed in further detail at your follow-up appointment, if applicable. Please Follow Up With: Harvey Odom DO - 2 weeks
--- NOTE | 2019-10-19 13:17 | OP.PCM_ITS ---
Report of Operation Date of Procedure: 10/19/19 Description of Surgical Findings:: Preoperative diagnosis: Right hip DJD Postoperative diagnosis: Same Procedure: CT-guided Makoplasty assisted. right Total hip arthroplasty Implants: [place] Accolade II stem size 3 [127] degree neck angle neutral] neck length 52 mm Trident II acetabular shell with 35 mm cancellous screw [36]mm [ceramic] head Anesthesia: general EBL: [175] cc Complications: None Condition: Stable to PACU Indication for procedure: This is a 64-year-old female who has had long-standing arthrosis of the hip who has failed conservative treatment and wished to undergo total hip arthroplasty. We did discuss operative versus nonoperative intervention including risks of bleeding, infection , nerve artery tissue damage, need for further surgery, fracture, leg length discrepancy dislocation blood clot and need for postoperative physical therapy and postoperative expectations. An informed consent was signed. Procedure: Patient was met in the preoperative holding area once again the operative extremity was identified by both patient and physician and was marked. Patient was met by anesthesia [General anesthesia was started]. patient was then positioned in the lateral decubitus position on a well-padded pegboard with an axillary roll. All bony prominences were checked and padded. The patient was prepped and draped in the usual sterile fashion. A timeout was called to ensure the proper patient procedure and extremity were being contemplated. Anatomic landmarks were palpated and marked for a standard posterior lateral approach. Prior to this the ASIS was palpated and 3 fingerbreadths proximal to this 3 pins were placed at a 45 degree angle into the iliac crest with good purchase, stab incisions were made with a 15 blade into the skin prior to placement. The Makoplasty array was then secured. A 10 blade scalpel was used to make a posterior incision through the skin and subcutaneous tissue. retractors were used and electrocautery was used to maintain meticulous hemostasis and dissect full-thickness flaps until the gluteal fascia was reached. The gluteal fascia was incised in line with the gluteal fibers. The bursal tissue was then freed from the underside and a Charnley retractor was placed. The femoral trochanteric checkpoint was placed and leg length was assessed using the trochanteric checkpoint and an EKG lead that was placed on the knee prior to prepping the leg .the fat pad was then elevated off of the external rotators with electrocautery and the external rotators were dissected off of the greater trochanter including the piriformis and were tagged with #1 Ethibond for later repair. The joint capsule opened with posterior trapdoor technique. The hip was surgically dislocated. The measurement on the preoperative CT from the top of the lesser trochanter to the femoral neck cut was marked Hohmann was placed around the lesser trochanter. A neck cutting guide was used to lelo the neck with a Bovie and an oscillating saw was used complete the femoral neck cut. The femoral head was then removed and sized. We then turned our attention to the acetabulum. A Bovie was used to make a perforation in the anterior joint capsule and a Hale retractor was placed this was repeated in the 6 o'clock position and a wide arsen was placed there. With a long handled knife the labral and pulvinar tissue were removed. We then registered the acetabulum with the pointing array and confirmed our landmarks. Also placed a checkpoint in the superior acetabulum and a Steinmann pin was also placed in this location to aid in retraction. Once the socket was thoroughly prepared and labral tissue pulmonary was removed we single reamed with the robotic arm. We then used the robotic arm to position the acetabular implant and impacted it into place under robotic guidance. [We then proceeded to place a posterior superior screw by drilling first measuring and inserting the screw]. We then inserted a trial liner. And turned our attention back to the femur at this point a femoral elevator was used. As well as a pointed wide Hohmann around the lesser trochanter and a Hohmann to help retract the gluteus medius. A box chisel was used to remove excess lateral neck followed by a canal finder and a lateralizing reamer. This was followed by sequential broaches. Attention was made of the version within the canal based on preoperative templating. Once the final broach was seated we then trialed reduced the hip it was determined that a [127] degree neck angle with a neutral neck length was the appropriate size. We then checked stability with shuck testing as well as flexion and internal rotation. then proceeded with hip extension and checked leg lengths at the knees and heels as well as with the trochanteric checkpoint and knee EKG lead. At this point trials were removed. A liner was inserted to the cup. The femoral stem was inserted. We re-trialed and then proceeded to impact the femoral head onto the Chris taper. We then surgically reduce the hip check stability again and leg lengths and were satisfied. Betadine rinse was allowed to sit for 5 minutes while everyone changed their gloves. Thorough irrigation was performed. Followed by closure of the external rotators with #2 FiberWire followed by closure of gluteal fascia with #1 Ethibond. 0 Vicryl fat stitches and 2-0 Vicryl subcutaneous stitches and lindsay in the skin. A pulls were placed in the pin sites over the iliac crest with Xeroform 4 x 4 and OpSite. dressing was applied to incisional area with Mepilex Ag and an abduction pillow was placed. Patient tolerated the procedure well there was no intraoperative complications all counts were correct and the patient was brought back to the PACU in stable condition
[2019-10-19] MEDS: Ketorolac 30 MG/ML Syringe 15 MG IV (13:57)
[2019-10-19] MEDS: Lactated Ringers 1,000 ML 125 ML IV (15:03)
[2019-10-19] MEDS: oxyCODONE 5 MG Tablet PO (15:11)
== END 2019-10-19 17:54 | disposition home or self-care (01) ==
LOC: SDC 06:53 → AC 06:53
PROVIDERS: Anesthesiology; PCP Internal Medicine; Referring Provider Orthopaedic Surgery; Visit Provider Orthopaedic Surgery
PROC: 8E0Y0CZ Robotic Assisted Procedure of Lower Extremity, Open Approach (ICD-10-PCS; CPT 27130; principal; 2019-10-19 10:15)
DX: M16.11 Unilateral primary osteoarthritis, right hip (principal); Z11.59 Encounter for screening for other viral diseases; I10 Essential (primary) hypertension; F41.9 Anxiety disorder, unspecified; F32.9 Major depressive disorder, single episode, unspecified; Z78.0 Asymptomatic menopausal state; Z79.899 Other long term (current) drug therapy; Z87.891 Personal history of nicotine dependence
CPT/HCPCS: 01214; 27130; 36415; 73502; 80048; 82962; 83735; 85025; 85610; 85730; 86850; 86900; 86901; 87081; 87635; 94799; 97162; C1776; G2023; J7120; J2405; J3475; U0003

== ENCOUNTER 2019-11-10 12:30 | Outpatient (RCR) | payer OTHER, SELFPAY ==
[2019-06-04 10:22] VITALS: BMI 21.4
[2019-10-19 07:53] VITALS: BMI 21.4
--- NOTE | 2019-10-21 10:28 | HP.PTEVAL_ITS ---
Patient's Visit Information ELIE GUTIERREZ is a 64 year old F referred to Physical Therapy by Dr. Harvey Odom DO with a diagnosis of Posterior Approach THR 10/19/2019. Date of Evaluation: 10/21/19 Physical Therapist: Erika Leavitt DPT - Visit Plan Frequency: 3x /Week Duration: 3 Weeks Plan: Posterior THR 10/19/2019. HEP Given: Quad set, glut set, seated marching, postural education in sitting, heel slides, weight shifting - Subjective Right THR 10/19/[address] Alicia- she is weight bearing as tolerated. Posterior approach and is aware of the precautions. Patient reports that she has pain when she gets in/out of the car and when she takes it out to the side. Is not driving. Pain is located in the groin and wraps around to the greater troch- Radiates to the knee- Worst in last 24 hours: 9.5/10 when she sat down on the toilet. Best: 1/10 Feels like an incision when she is sitting. Eases: sitting, resting and elevation. Sleep: not disturbed- in her bed- back with a pillow under her legs. Work: semi-retired [employer] once in awhile. Wants to be able to get back to driving and use her leg normally. No N/T in the LE- no loss of bowel and bladder. PMHx/Meds: none since left hospital. - Objective Posture: Fh, RS- can correct but does not maintain. Gait: antalgic- using std walker (educated on FWW to improve gait). Decreased stance on the right LE with poor heel/toe pattern. Observation: sitting patient leans to the left to remove weight from the right Hip. Incision: no s/s of infection. Palpation: tender along incision, greater troch and down the ITBand and Quads to the knee. HR/TR: able reports discomfort with TR in the quad. SLS: weight shift but unable to SLS and reports pain. Sensation: WNL to gross touch bilateral;y. ROM: hip: flexion: 70 degrees, Extn: neutral, Add: neutral, Abd: 40 degrees, IR/ER: neutral. Knee: flexion: 100 degrees extn: WNl Ankle: WNL. Strength: Core: fair minus, Hip: unable to SLR without max A, quad set visible and strong add/abd: neutral 4+/5, Knee: 4+/5, Ankle: 5/5. Flex: HS: moderate Gastroc: moderate - Goals Goal 1:: Patient will be I with HEP and progression Goal Time Frame: 4-6 Weeks Goal 2:: Patient will ambulate >300 feet with a normalized gait pattern Goal Time Frame: 4-6 Weeks Goal 3:: Patient will asc/desc 8' stairs recip with 1 HR Goal Time Frame: 4-6 Weeks Goal 4:: Patient will SLR with no lag Goal Time Frame: 4-6 Weeks Goal 5:: Patient will report no pain with ADL's for 1 week Goal Time Frame: 4-6 Weeks - Rehabilitation Potential Physical Therapy Diagnosis: Patient presents s/p THR 10/19/2019- she has decreased ROM, strength, flex and muscular endurance leading to abnormal gait and decreased participation in ADL's. Rehabilitation Potential: Good - Anticipated Interventions Patient/Client Instruction: Educate patient on: Benefits of Fitness Program Therapeutic Exercise to Include: Strength training, Endurance training, Balance training, Coordination, Agility training, Body mechanics, Postural training, Flexibilty training, Gait and locomotor training, Passive ROM, Active ROM, Dynamic Lumbar Stabilization Comment: Posterior approach precautions For the Purpose of:: To improve muscle performance and motor function TENS: Yes Cryotherapy (ice pack, ice massage): Yes Thermo therapy (hot pack): Yes Ultrasound (thermal/non thermal): No For the Purpose of:: To decrease pain Thank you for the opportunity to evaluate your patient. For Medicare and Medicare HMO plans, please review the plan of care and approve it. It will need to be FAXED BACK to us at [phone] for Medicare purposes. For Medicare only, by signing this I certify the plan of care. Please let me know if there are questions or concerns regarding this plan of care. Physician Signature: Date:
--- NOTE | 2020-01-03 15:54 | HP.PT.NRP ---
ELIE GUTIERREZ was seen in my office for initial evaluation on 10/21/19. The following Plan of Care was established for this patient: Initial Frequency: 3x /Week Initial Duration: 3 Weeks Patient/Client Instruction: Educate patient on: Benefits of Fitness Program Therapeutic Exercise to Include: Strength training, Endurance training, Balance training, Coordination, Agility training, Body mechanics, Postural training, Flexibilty training, Gait and locomotor training, Passive ROM, Active ROM, Dynamic Lumbar Stabilization For the Purpose of:: To improve muscle performance and motor function TENS: Yes Cryotherapy (ice pack, ice massage): Yes Thermo therapy (hot pack): Yes Ultrasound (thermal/non thermal): No For the Purpose of:: To decrease pain This patient was last seen in our office . Pertinent comments regarding their Physical therapy will appear below: Patient has not returned to PT in over 6 weeks- appropriate for d/c and return to MD for further evaluation as needed. At this point I will be discontinuing this patient from physical therapy. I would be happy to see this patient again in the future if found appropriate by the physician. Thank you! ELISSA EnriqueT
== END 2019-11-10 19:00 | disposition home or self-care (01) ==
LOC: PT 12:30
PROVIDERS: PCP Internal Medicine; Referring Provider Orthopaedic Surgery; Visit Provider Orthopaedic Surgery
DX: Z47.1 Aftercare following joint replacement surgery (principal); Z96.641 Presence of right artificial hip joint
CPT/HCPCS: 97110; 97161

== ENCOUNTER → 2019-11-10 12:57 | Outpatient (CLI) | payer OTHER, SELFPAY ==
[2019-11-09 11:27] VITALS: BMI 21.4
--- NOTE | 2019-11-10 12:58 | RAD_ITS ---
STUDY: X-RAY - CERVICAL SPINE REASON FOR EXAM: Female, 64 years old. LEFT SHOULDER AND NECK PAIN TECHNIQUE: 3 view(s) of the cervical spine were obtained. COMPARISON: None FINDINGS: Normal anterior atlantoaxial articulation. Normal odontoid process. Normal cervical lordosis. Degenerative disc disease from C3-4 through C6-7. Diffuse facet disease. The soft tissue structures are unremarkable. RAD/Cerv Spine 2 or 3 Views IMPRESSION: Multilevel degenerative disease as described. Electronically Signed: Fernandez Marino MD at 17:18 EDT Tel , Service support ,
== END ==
PROVIDERS: PCP Internal Medicine; Referring Provider Internal Medicine; Visit Provider Internal Medicine
DX: M54.2 Cervicalgia (principal)
CPT/HCPCS: 72040

== ENCOUNTER → 2019-12-03 09:15 | Outpatient (CLI) | payer OTHER, SELFPAY ==
[2019-12-03 07:56] VITALS: BMI 21.4
--- NOTE | 2019-12-03 09:16 | RAD_ITS ---
STUDY: X-RAY - PELVIS AND RIGHT HIP REASON FOR EXAM: Female, 64 years old. 2 MONTH POST OP TECHNIQUE: 3 views of the pelvis and hip. COMPARISON: Pelvic x-ray dated October 19 2019 FINDINGS: There is a non-specific bowel gas pattern. Normal visualized soft tissue structures. Normal bilateral iliac wings, sacroiliac joints and visualized sacrum. Normal bilateral superior and inferior pubic rami. Normal pubic symphysis. Normal bilateral ischial tuberosities. Stable right hip prosthesis. No demonstrated complications. No acute fractures. RAD/HIP, UNI W/ Pelvis 2-3 Views IMPRESSION: No acute process Electronically Signed: Efrem Huggins MD at 21:39 EDT , Service support ,
== END ==
PROVIDERS: PCP Internal Medicine; Referring Provider Orthopaedic Surgery; Visit Provider Orthopaedic Surgery
DX: M19.90 Unspecified osteoarthritis, unspecified site (principal)
CPT/HCPCS: 73502

== ENCOUNTER → 2020-09-27 11:47 | Outpatient (CLI) | payer OTHER, SELFPAY ==
[2020-09-27 11:14] VITALS: BMI 21.2
[2020-09-27 15:05] LABS: Absolute Lymphocyte Count 1.95 X10^3/uL (0.83-4.51); Absolute Neutrophil Count 1.4 X10^3/uL (2.0-7.7); Basophil# 0.04 X10^3/uL; Eosinophil# 0.14 X10^3/uL; Eosinophils% 3.7 % (0-5); Hematocrit 39.3 % (37-47); Hemoglobin 12.7 g/dL (12.0-15.0); Lymphocyte # 1.95 X10^3/ul (0.83-4.51); Mean Corp Hgb Conc 32.3 g/dL (32-36); Mean Corpuscular Hgb 29.5 pg (27.0-32.0); Mean Corpuscular Volume 91.2 fL (81-99); Mean Platelet Vol. 11.2 fl (6.2-12.0); Monocyte# 0.26 X10^3/uL; Monocyte% 6.8 % (0-10); NRBC Flagged by Analyzer 0 % (0-5); Neutrophil # 1.42 X10^3/uL (2.7-7.7); Neutrophil % 37.2 % (47-70); Platelet Count 336 K/mm3 (150-450); RBC Distribution Width CV 12.5 % (11.6-14.6); RBC Distribution Width SD 42.2 fl (35.1-43.9); Red Blood Count 4.31 M/mm3 (4.2-5.4); White Blood Count 3.8 K/mm3 (4.4-11.0)
[2020-09-27 15:27] LABS: Vitamin B12 472 pg/mL (211-911); Vitamin D,25 Hydroxy 40.3 ng/mL
[2020-09-27 15:33] LABS: ALB/GLOB Ratio 1.2 RATIO (0.9-2.4); AST(SGOT) 20 U/L (15-37); Alanine Aminotransfer ALT/SGPT 27 U/L (13-56); Albumin, Serum 4.3 g/dL (3.2-5.0); Alkaline Phosphatase 65 U/L (45-117); Anion Gap 6 (5-15); BUN 10 mg/dL (7-18); BUN/Creat Ratio 11.6 RATIO (10-20); Chloride 104 mmol/L (98-107); Cholesterol 183 mg/dL (200); Creatinine, Serum 0.86 mg/dL (0.55-1.02); EST Glomerular Filtration Rate 70 mL/min (>60); Est Glom Filt Rate - Afr Amer 85 mL/min (>60); Globulin 3.5 g/dL (2.2-4.2); Glucose 85 mg/dL (74-106); High Density Lipoprotein 57 mg/dL; Potassium 3.7 mmol/L (3.5-5.1); Protein, Total 7.8 g/dL (6.4-8.2); Sodium Level 139 mmol/L (136-145); Thyroid Stim Hormone (TSH) 0.58 uIU/mL (0.358-3.74); Triglycerides 51 mg/dL; Very Low Density Lipoprotein 10 mg/dL (5-40)
== END ==
PROVIDERS: PCP Internal Medicine; Referring Provider Nurse Practitioner Family; Visit Provider Nurse Practitioner Family
DX: F32.9 Major depressive disorder, single episode, unspecified (principal); F41.9 Anxiety disorder, unspecified; I10 Essential (primary) hypertension; M19.90 Unspecified osteoarthritis, unspecified site; E56.9 Vitamin deficiency, unspecified
CPT/HCPCS: 36415; 80053; 80061; 82306; 82607; 84443; 85025

== ENCOUNTER → 2021-09-14 | Outpatient (CLI) | payer MEDICARE, SELFPAY ==
[2021-09-14 15:18] LABS: Absolute Lymphocyte Count 1.66 X10^3/uL (0.83-4.51); Absolute Neutrophil Count 2.8 X10^3/uL (2.0-7.7); Basophil# 0.03 X10^3/uL; Basophil% 0.6 % (0-1); Hematocrit 37.2 % (37-47); Hemoglobin 12.2 g/dL (12.0-15.0); Lymphocyte # 1.66 X10^3/ul (0.83-4.51); Lymphocyte % 33.4 % (19-41); Mean Corp Hgb Conc 32.8 g/dL (32-36); Mean Corpuscular Hgb 30.7 pg (27.0-32.0); Mean Corpuscular Volume 93.7 fL (81-99); Mean Platelet Vol. 11.1 fl (6.2-12.0); Monocyte# 0.36 X10^3/uL; Monocyte% 7.2 % (0-10); NRBC Flagged by Analyzer 0 % (0-5); Neutrophil # 2.81 X10^3/uL (2.7-7.7); Neutrophil % 56.6 % (47-70); Platelet Count 359 K/mm3 (150-450); RBC Distribution Width CV 12.6 % (11.6-14.6); RBC Distribution Width SD 43.7 fl (35.1-43.9); Red Blood Count 3.97 M/mm3 (4.2-5.4)
[2021-09-14 15:43] LABS: Vitamin B12 421 pg/mL (211-911)
[2021-09-14 16:13] LABS: ALB/GLOB Ratio 1.2 RATIO (0.9-2.4); AST(SGOT) 27 U/L (15-37); Alanine Aminotransfer ALT/SGPT 27 U/L (13-56); Albumin, Serum 4.2 g/dL (3.2-5.0); Alkaline Phosphatase 78 U/L (45-117); Anion Gap 5 (5-15); BUN 11 mg/dL (7-18); BUN/Creat Ratio 15.5 RATIO (10-20); Chloride 104 mmol/L (98-107); Cholesterol 203 mg/dL (200); Creatinine, Serum 0.71 mg/dL (0.55-1.02); EST Glomerular Filtration Rate 88 mL/min (>60); Est Glom Filt Rate - Afr Amer 106 mL/min (>60); Globulin 3.4 g/dL (2.2-4.2); Glucose 94 mg/dL (74-106); High Density Lipoprotein 81 mg/dL; Iron 58 ug/dL (50-170); Potassium 3.8 mmol/L (3.5-5.1); Protein, Total 7.6 g/dL (6.4-8.2); Sodium Level 138 mmol/L (136-145); Thyroid Stim Hormone (TSH) 0.68 uIU/mL (0.358-3.74); Triglycerides 46 mg/dL; Very Low Density Lipoprotein 9 mg/dL (5-40)
== END | disposition home or self-care (01) ==
LOC: BIMLAB 13:54
PROVIDERS: PCP Internal Medicine; Referring Provider Physician Assistant; Visit Provider Physician Assistant
DX: Z00.00 Encounter for general adult medical examination without abnormal findings (principal); F41.9 Anxiety disorder, unspecified; F32.9 Major depressive disorder, single episode, unspecified; I10 Essential (primary) hypertension; E53.8 Deficiency of other specified B group vitamins; E53.1 Pyridoxine deficiency; E61.1 Iron deficiency; M25.552 Pain in left hip
CPT/HCPCS: 36415; 80053; 80061; 82607; 83540; 84443; 85025

== ENCOUNTER → 2022-12-16 | Outpatient (CLI) | payer MEDICARE, SELFPAY ==
[2022-12-16 12:13] LABS: Absolute Lymphocyte Count 1.55 X10^3/uL (0.83-4.51); Absolute Neutrophil Count 2.2 X10^3/uL (2.0-7.7); Basophil# 0.06 X10^3/uL; Basophil% 1.5 % (0-1); Eosinophil# 0.08 X10^3/uL; Eosinophils% 1.9 % (0-5); Hematocrit 37.1 % (37-47); Lymphocyte # 1.55 X10^3/ul (0.83-4.51); Lymphocyte % 37.7 % (19-41); Mean Corp Hgb Conc 32.3 g/dL (32-36); Mean Corpuscular Hgb 31.2 pg (27.0-32.0); Mean Corpuscular Volume 96.4 fL (81-99); Mean Platelet Vol. 10.9 fl (6.2-12.0); Monocyte# 0.22 X10^3/uL; Monocyte% 5.4 % (0-10); NRBC Flagged by Analyzer 0 % (0-5); Neutrophil # 2.19 X10^3/uL (2.7-7.7); Neutrophil % 53.3 % (47-70); Platelet Count 282 K/mm3 (150-450); RBC Distribution Width CV 13.2 % (11.6-14.6); Red Blood Count 3.85 M/mm3 (4.2-5.4); White Blood Count 4.1 K/mm3 (4.4-11.0)
[2022-12-16 12:55] LABS: ALB/GLOB Ratio 1.2 RATIO (0.9-2.4); AST(SGOT) 24 U/L (15-37); Alanine Aminotransfer ALT/SGPT 29 U/L (13-56); Albumin, Serum 3.8 g/dL (3.2-5.0); Alkaline Phosphatase 60 U/L (45-117); Anion Gap 6 (5-15); BUN 10 mg/dL (7-18); BUN/Creat Ratio 11.7 RATIO (10-20); Chloride 105 mmol/L (98-107); Creatinine, Serum 0.86 mg/dL (0.55-1.02); EST Glomerular Filtration Rate 70 mL/min (>60); Est Glom Filt Rate - Afr Amer 85 mL/min (>60); Globulin 3.2 g/dL (2.2-4.2); Glucose 100 mg/dL (74-106); Potassium 3.6 mmol/L (3.5-5.1); Sodium Level 140 mmol/L (136-145)
== END | disposition home or self-care (01) ==
LOC: BIMLAB 11:12
PROVIDERS: PCP Internal Medicine; Referring Provider Internal Medicine; Visit Provider Internal Medicine
DX: I10 Essential (primary) hypertension (principal)
CPT/HCPCS: 36415; 80053; 85025

== ENCOUNTER 2023-06-17 20:15 | Emergency (ER) | payer MEDICARE, SELFPAY ==
[2023-06-17] VITALS (9 sets, daily range): BP systolic 103–149; BP diastolic 47–92; PULSE 71–82; RESP 14–19; TEMP 36.2–36.9; O2SAT 95–100
--- NOTE | 2023-06-17 21:05 | RAD_ITS ---
STUDY: X-RAY - PELVIS AND RIGHT HIP REASON FOR EXAM: Female, 68 years old. Injury/Pain TECHNIQUE: 3 views of the pelvis and hip. COMPARISON: None. FINDINGS: There is a non-specific bowel gas pattern. Normal visualized soft tissue structures. Normal bilateral iliac wings, sacroiliac joints and visualized sacrum. Normal bilateral superior and inferior pubic rami. Normal pubic symphysis. Normal bilateral ischial tuberosities. Dislocated right hip prosthesis with superior lateral and anterior displacement of the head component. No associated fracture visualized RAD/HIP, UNI W/ Pelvis 2-3 Views IMPRESSION: Dislocated right hip prosthesis without associated fracture. Electronically Signed: Christo Travis MD at 21:43 EDT ,
[2023-06-17] MEDS: Morphine 4 MG/ML Syringe IV (21:18)
[2023-06-17] MEDS: Ondansetron 4 MG/2 ML Vial IV (21:18)
--- NOTE | 2023-06-17 22:17 | EDS_ITS ---
HPI History of Present Illness Chief Complaint: Lower Extremity Injury Detail of Chief Complaint: I believe my prosthetic hip is dislocated Informant: patient Occured/Mechanism Comment: Patient states she turned changing the sheets on her bed and felt a pop in her leg collapsed. Onset/Context/Timing Onset: Hours Context: Sudden Onset Timing: Continuous Quality of Pain: Throbbing Location: Right groin region Current Severity: Mild Maximum Severity: Moderate Worsened by: Movement of her right lower extremity Relieved by: Improved after IV morphine Associated Symptoms Associated Symptoms: Negative for Parasthesia or Weakness Narrative Narrative: Patient is a 68-year-old woman status post right total hip arthroplasty by Dr. Harvey Odom. She arrived by ambulance. Her right lower extremity is flexed at the knee and hip. She denies paresthesia, anesthesia medics. She has no other complaints. She is not on an antithrombotic or anticoagulant. Tetanus Immunization: 5-10 years Prior similar symptoms: No Recent Illness/Hospitalization: No PFSH PFSH Medical History Acne Alcohol abuse Anxiety Arthritis Borderline personality disorder Chronic back pain Generalized anxiety disorder H/O emotional problems IBS (irritable bowel syndrome) Iron deficiency Rosacea Seasonal allergies Tobacco use disorder Vitamin deficiency Home Medications medical marijuana PO 09/25/20 [History Last Taken Unknown] celecoxib 100 mg capsule (Celebrex) 100 mg PO BID PRN pain #180 caps 12/23/22 [Rx Last Taken Unknown] tretinoin 0.025 % topical gel 1 applic topical QHS 3 months #45 grams 12/23/22 [Rx Last Taken Unknown] bupropion HCl 150 mg tablet,12 hr sustained-release (Wellbutrin SR) 150 mg PO BID #60 ea 03/25/23 [Rx Last Taken Unknown] mirtazapine 30 mg tablet 30 mg PO QHS #90 tabs 03/25/23 [Rx Last Taken Unknown] nicotine 7 mg/24 hr daily transdermal patch 1 patch transdermal Q24H #28 ea 03/25/23 [Rx Last Taken Unknown] estradiol 0.01% (0.1 mg/gram) vaginal cream (Estrace) See Rx Instructions vaginal .COMPLEX #42.5 grams 04/14/23 [Rx Last Taken Unknown] duloxetine 30 mg capsule,delayed release 90 mg (3 x 30 mg) PO DAILY 90 days #270 caps 04/17/23 [Rx Last Taken Unknown] gabapentin 600 mg tablet See Rx Instructions .Route .COMPLEX #270 tabs 05/01/23 [Rx Last Taken Unknown] Allergy/AdvReac Type Severity Reaction Status Date / Time Penicillins [PCN] Allergy Severe anaphalaxis Verified 06/17/23 20:17 ragweed pollen AdvReac Other Verified 06/17/23 20:17 Family History Other Alcoholism Anxiety and depression Arthritis Heart disease Hyperlipemia Hypertension Thyroid disorder Surgical History History of History of hip replacement, total History of tonsillectomy Social History household members: spouse and children number of children: 1 current occupational status: retired Smoking Status: Light Smoker (<10/day) Tobacco: How many years used: 25 alcohol intake: never substance use type: does not use and marijuana what type of physical activity do you participate in: walking, bicycling, weight training and other details: stretches frequency: daily seatbelt use: always do you feel safe at home: Yes ROS ROS ED Constitutional Constitutional ED: Denies chills, fever(s), subjective or sweats Eyes Eyes: Denies blurry vision or change in vision Cardiovascular Cardiovascular: Denies chest pain or palpitations Respiratory/Chest Respiratory/Chest: Denies cough or dyspnea Gastrointestinal Gastrointestinal: Denies abdominal pain, nausea or vomiting Musculoskeletal Musculoskeletal: Reports other Details: Per HPI ; Denies arthralgias or myalgias Neurologic Neurologic: Denies paresthesias or weakness Hematologic/Lymphatic Hematologic/Lymphatic: Denies easy bleeding or easy bruising EXAM Physical Exam Const Vital Signs: 06/17/23 20:17 06/17/23 22:47 06/17/23 22:56 Temperature 98.5 F 97.6 F L Temperature Source Oral Pulse Rate 82 73 75 Pulse Rate [1 (Initial Baseline)] Pulse Rate [2] Respiratory Rate 18 19 H 15 Respiratory Rate [1 (Initial Baseline)] Respiratory Rate [2] Blood Pressure 149/92 H 108/75 131/80 H Blood Pressure [1 (Initial Baseline)] Blood Pressure [2] Blood Pressure Mean 111 86 Pulse Ox 100 96 95 Oxygen Delivery Method Room Air Room Air Room Air Oxygen Delivery Method [1 (Initial Baseline)] Oxygen Delivery Method [2] Oxygen Flow Rate (L/min) Oxygen Flow Rate (L/min) [1 (Initial Baseline)] Oxygen Flow Rate (L/min) [2] 06/17/23 22:57 06/17/23 23:01 06/17/23 23:04 Temperature Temperature Source Pulse Rate Pulse Rate [1 (Initial Baseline)] 74 Pulse Rate [2] 74 Respiratory Rate Respiratory Rate [1 (Initial Baseline)] 16 Respiratory Rate [2] 14 Blood Pressure Blood Pressure [1 (Initial Baseline)] 131/80 H Blood Pressure [2] 128/87 H Blood Pressure Mean Pulse Ox Oxygen Delivery Method Nasal Cannula Nasal Cannula Oxygen Delivery Method [1 (Initial Baseline)] Nasal Cannula Oxygen Delivery Method [2] Nasal Cannula Oxygen Flow Rate (L/min) 6 6 Oxygen Flow Rate (L/min) [1 (Initial Baseline)] 2 Oxygen Flow Rate (L/min) [2] 2 06/17/23 23:07 06/17/23 23:10 Temperature Temperature Source Pulse Rate Pulse Rate [1 (Initial Baseline)] Pulse Rate [2] Respiratory Rate Respiratory Rate [1 (Initial Baseline)] Respiratory Rate [2] Blood Pressure Blood Pressure [1 (Initial Baseline)] Blood Pressure [2] Blood Pressure Mean Pulse Ox Oxygen Delivery Method Nasal Cannula Room Air Oxygen Delivery Method [1 (Initial Baseline)] Oxygen Delivery Method [2] Oxygen Flow Rate (L/min) 2 Oxygen Flow Rate (L/min) [1 (Initial Baseline)] Oxygen Flow Rate (L/min) [2] Positive well nourished and well developed General Appearance ED: well developed and NAD HEENT Reports moist mucous membranes normocephalic and atraumatic Eyes PERRL Eyes Narrative: Extract muscle intact. Sclera is anicteric. Conjunctive is pink. Neck full ROM and supple Chest Wall inspection of chest normal and palpation of chest normal Resp normal respiratory effort, no retractions and clear to auscultation bilaterally Cardio regular rate, regular rhythm, S1 normal heart sound, S2 normal heart sound and no murmurs GI non-tender, non-distended and no masses Auscultation: normoactive bowel sounds Palpation: soft Back/Spine no CVA tenderness Extremity Negative for normal to inspection or full ROM Extremity Narrative: Flex at the hip and internally rotated consistent with dislocated prosthetic hip General Extremety ED: Negative for weight-bearing difficulty General Extremity: Negative for weight-bearing difficulty Neuro oriented x3, CN's II-XII intact bilaterally, moves all extremities and no sensory deficits noted Sensorium / Orientation: alert Plantar Reflex: Downgoing: bilateral Psych mental status grossly normal Skin no wounds Lesions: no lesions Rashes: no rashes MDM MDM MDM Narrative Medical decision making narrative: Suspect patient has a dislocated prosthetic right hip. Will obtain x-ray to confirm and rule out fracture. Patient was informed that she does have a superior posterior hip dislocation. She will require reduction. She denies allergy to soy products Anaprox. She has had no complications with IV anesthetic. She has not had any to eat since 1400. She has had nothing to drink since 1500. Patient was consented for procedural sedation and closed reduction of dislocated prosthetic right hip. Radiography Chest X-Ray - ED: Read by ED Physician (Three-view x-ray of the hip reveals a superior posterior prosthetic dislocation. There is no associated fracture. This was apparently reviewed interpreted by me.) Diagnostic Testing: Clinical Impression(s) from Imaging Studies Hip/Pelvis X-Ray 06/17/23 21:05 IMPRESSION: Dislocated right hip prosthesis without associated fracture. Electronically Signed: Christo Travis MD at 21:43 EDT Reading Location ID and State: [address] [place] [address] Tel , Service support , Three-view postreduction film reveals reduction of dislocation with no evidence of fracture. This was apparently reviewed interpreted by me at 2328. Rhythm Strip Rhythm Strip: Sinus Rhythm Rate: 78 Ectopy: None Procedures Procedural Sedation 1 (Initial Baseline): Consent Signed: Yes Any Problems With Anesthesia: No You/Your family experience fever (hyperthermia) w/anesthesia: No Sedation medication: Propofol Dose: 80 Route: IV Total Moderate Sedation Units: 2 Maliampati Score: Class I ASA Classification: II Comment:: Patient tolerated procedure. There was a drop in pulse ox however there is no drop in CO2. Patient recovered rapidly with increased oxygen. Suspect this may have been a false reading. There is no evidence of central cyanosis. Not question whether she did have a drop but did not believe it went to 70. Discharge Plan Triage Chief Complaint: Lower Extremity Injury ED Provider: Cristi Mcmahan Dx/Rx/DC Orders Clinical Impression: Dislocation of internal right hip prosthesis, initial encounter, Hypertension, Borderline personality disorder, Tobacco use disorder Instructions: ED Hip Replace Dislocation Reduc Prescriptions: No Action medical marijuana PO nicotine 7 mg/24 hr patch 24 hour 1 patch transdermal Q24H Qty: 28 1RF bupropion HCl [Wellbutrin SR] 150 mg tablet sustained-release 12 hr 150 mg PO BID Qty: 60 2RF mirtazapine 30 mg tablet 30 mg PO QHS Qty: 90 1RF celecoxib [Celebrex] 100 mg capsule 100 mg PO BID PRN (Reason: pain) Qty: 180 2RF tretinoin 0.025 % gel 1 applic topical QHS 90 Days Qty: 45 1RF Rx Instructions: Apply to face QHS estradiol [Estrace] 0.01 % (0.1 mg/gram) cream See Rx Instructions vaginal .COMPLEX Qty: 42.5 2RF Rx Instructions: pea sized amount VAGINAL twice a week; duloxetine 30 mg capsule,delayed release(DR/EC) 90 mg PO DAILY 90 Days Qty: 270 1RF gabapentin 600 mg tablet See Rx Instructions .ROUTE .COMPLEX Qty: 270 0RF Dose Instruction: TAKE 2 TABLETS BY MOUTH THREE TIMES DAILY Rx Instructions: TAKE 2 TABLETS BY MOUTH THREE TIMES DAILY Primary Care Provider: Balbina Zelaya Referrals: Balbina Zelaya MD [Primary Care Provider] - Harvey Odom DO [Med Staff - Active Staff] - 5-7 Days Activity Restrictions/Additional Instructions: Wear knee immobilizer until seen by Dr. Odom Disposition Disposition: Home, Self Care
[2023-06-17] MEDS: Propofol 200 MG/20 ML Vial IV BOLUS (22:56)
--- NOTE | 2023-06-17 23:02 | RAD_ITS ---
INDICATION: Postreduction EXAMINATION/TECHNIQUE: X-RAY - XR Hip Unilateral with Pelvis when performed; 1 View: AP view pelvis with lateral view right hip COMPARISON: Radiographs from 2 hours prior FINDINGS: PELVIC BONES: No displaced fracture or suspicious osseous lesion demonstrated. Note that overlapping bowel shadows may however obscure fine detail. Sacroiliac joints are unremarkable. No widening of the pubic symphysis. HIPS: Normal alignment of right hip arthroplasty hardware status post reduction. Normal alignment left hip with preserved joint space. No displaced fracture demonstrated. SOFT TISSUES: No acute findings. RAD/Hip 1 view with Pelvis IMPRESSION: Normal alignment right hip arthroplasty post reduction Electronically Signed: Martir Su MD at 0:19 EDT ,
== END 2023-06-17 23:57 | disposition home or self-care (01) ==
PROVIDERS: Emergency Provider Emergency Medicine; PCP Internal Medicine; Visit Provider Emergency Medicine
DX: T84.020A Dislocation of internal right hip prosthesis, initial encounter (principal); F60.3 Borderline personality disorder; I10 Essential (primary) hypertension; Z96.641 Presence of right artificial hip joint; X58.XXXA Exposure to other specified factors, initial encounter; Y93.89 Activity, other specified; F41.1 Generalized anxiety disorder; Z79.899 Other long term (current) drug therapy; F17.200 Nicotine dependence, unspecified, uncomplicated
CPT/HCPCS: 27265; 73501; 73502; 96374; 96375; 99284; J7040; A4216; J2405